=== PATIENT | female | born 1985 | race Caucasian/White ===

== ENCOUNTER → 2016-10-15 | Outpatient (CLI) | payer OTHER | LOC: EMI 10-13 08:15 | DX: M25.562 Pain in left knee (principal); E88.89 Other specified metabolic disorders | CPT/HCPCS: 73721 ==

== ENCOUNTER 2020-08-29 20:10 | Emergency (ER) | payer OTHER ==
[~2020-08-29 20:10] MED LIST: PRENATAL + DHA1 EAC1 PO
[2020-08-29 21:35] LABS: HEMOGLOBIN 10.9 gm/dl (12.3-15.3); RED BLOOD COUNT 4.21 M/UL (4.00-5.10); WHITE BLOOD COUNT 11.1 K/UL (4.5-11.0)
[2020-08-29] MEDS ORDERED: PROVERA 10 MG T10 MG PO (21:48)
== END 2020-08-29 22:14 | disposition home or self-care (01) ==
LOC: ER1 20:10
PROVIDERS: Physician Assistant Medical
DX: N93.9 Abnormal uterine and vaginal bleeding, unspecified (principal); Z32.02 Encounter for pregnancy test, result negative; Z79.899 Other long term (current) drug therapy
CPT/HCPCS: 81001; 84703; 85025; 85610; 85730; 86900; 86901; 99284

== ENCOUNTER 2020-08-31 06:45 | Outpatient (CLI) | payer OTHER ==
[~2020-08-31] VITALS: Ht 170.2 cm; Wt 124.7 kg
[~2020-08-31 06:45] MED LIST changes: +PROVERA 10 MG T10 MG PO
[2020-08-31 08:20] LABS: HEMOGLOBIN 10.4 gm/dl (12.3-15.3); RED BLOOD COUNT 4.17 M/UL (4.00-5.10); WHITE BLOOD COUNT 9.6 K/UL (4.5-11.0)
[2020-08-31] MEDS ORDERED: ZOLOFT100 MG PO (09:58)
[2020-08-31] MEDS ORDERED: HYDROCODON-ACE1 EAC4 PO (10:46)
[2020-08-31] MEDS ORDERED: PROVERA 2.5 MG2.5 MG PO (10:47)
== END 2020-08-31 14:59 | disposition home or self-care (01) ==
LOC: OR 06:45 → CCU 09:51 → OR 14:59
PROVIDERS: Obstetrics & Gynecology
DX: N93.9 Abnormal uterine and vaginal bleeding, unspecified (principal); E66.01 Morbid (severe) obesity due to excess calories; F32.9 Major depressive disorder, single episode, unspecified; Z82.49 Family history of ischemic heart disease and other diseases of the circulatory system; Z80.9 Family history of malignant neoplasm, unspecified; Z83.3 Family history of diabetes mellitus; Z20.822 Contact with and (suspected) exposure to COVID-19; Z68.41 Body mass index [BMI] 40.0-44.9, adult
CPT/HCPCS: 84703; 85025; 87635; J1100; J1885; J2001; J2250; J2405; J2704; J2795; J3010; J7120

== ENCOUNTER 2021-03-19 20:56 | Observation (INO) | payer OTHER ==
[~2021-03-19] VITALS: Ht 170.2 cm; Wt 131.5 kg
[~2021-03-19 20:56] MED LIST changes: +HYDROCODON-ACE1 EAC4 PO; +PROVERA 2.5 MG2.5 MG PO; +ZOLOFT100 MG PO
[2021-03-19 21:26] LABS: HEMOGLOBIN 11.1 gm/dl (12.3-15.3); RED BLOOD COUNT 4.78 M/UL (4.00-5.10); WHITE BLOOD COUNT 4.2 K/UL (4.5-11.0)
[2021-03-19 21:34] LABS: BUN/CREATININE RATIO 12 (0-10)
[2021-03-19 22:19] LABS: BORDETELLA PARAPERTUSSIS Not Detected (Not Detectd); BORDETELLA PERTUSSIS Not Detected (Not Detectd); CHLAMYDIA PNEUMONIAE Not Detected (Not Detectd); CORONAVIRUS HKU1 Not Detected (Not Detectd); CORONAVIRUS NL63 Not Detected (Not Detectd); CORONAVIRUS OC43 Not Detected (Not Detectd); CORONOAVIRUS 229E Not Detected (Not Detectd); HUMAN METAPNEUMOVIRUS Not Detected (Not Detectd); HUMAN RHINOVIRUS/ENTEROVIRUS Not Detected (Not Detectd); INFLUENZA A Not Detected (Not Detectd); INFLUENZA B Not Detected (Not Detectd); MYCOPLASMA PNEUMONIAE Not Detected (Not Detectd); PARAINFLUENZA VIRUS 1 Not Detected (Not Detectd); PARAINFLUENZA VIRUS 2 Not Detected (Not Detectd); PARAINFLUENZA VIRUS 3 Not Detected (Not Detectd); PARAINFLUENZA VIRUS 4 Not Detected (Not Detectd); RESPIRATORY SYNCYTIAL VIRUS Not Detected (Not Detectd)
[2021-03-19 23:23] LABS: SARS-CoV-2 DETECTED (Not Detectd)
[2021-03-20] MEDS ORDERED: CYCLOBENZAPRINE10 MG PO (01:16)
[2021-03-20 03:43] LABS: HEMOGLOBIN 11.1 gm/dl (12.3-15.3); RED BLOOD COUNT 4.69 M/UL (4.00-5.10); WHITE BLOOD COUNT 3.5 K/UL (4.5-11.0)
[2021-03-20 04:19] LABS: BUN/CREATININE RATIO 11 (0-10)
[2021-03-20] MEDS ORDERED: DEXAMETHASONE 44 MG PO (10:14)
[2021-03-20] MEDS ORDERED: PROAIR HFA8.5 GM INH (10:15)
--- NOTE | 2021-03-20 13:33 | NUR ---
PT ROOM AIR SAT 95%.
== END 2021-03-20 13:23 | disposition home or self-care (01) ==
LOC: ER1 20:56 → MED SURG 4 23:24 → CDU 23:24 → MED SURG 4 23:24
PROVIDERS: Preventive Medicine Occupational Medicine; ADMIT Internal Medicine
DX: U07.1 COVID-19 (principal); J12.82 Pneumonia due to coronavirus disease 2019; J96.01 Acute respiratory failure with hypoxia; F32.9 Major depressive disorder, single episode, unspecified; F41.9 Anxiety disorder, unspecified; E66.01 Morbid (severe) obesity due to excess calories; Z68.30 Body mass index [BMI] 30.0-30.9, adult; Z88.8 Allergy status to other drugs, medicaments and biological substances; Z79.899 Other long term (current) drug therapy
CPT/HCPCS: 36415; 36600; 80053; 81001; 82550; 82553; 82728; 82803; 83605; 83615; 83690; 83874; 83880; 84484; 84703; 85025; 85379; 85652; 86140; 87086; 87633; 93005; 94640; 94664; 94760; 96372; 99285; G0378; J1100; J1650; J7030; Q9967